=== PATIENT | male | born 1985 | race Caucasian/White ===

== ENCOUNTER 2020-07-05 12:19 | Emergency (ER) | payer OTHER ==
[~2020-07-05] VITALS: Ht 177.8 cm; Wt 78.9 kg
[2020-07-05 12:30] VITALS: Ht 177.8 cm; Wt 78.9 kg
[2020-07-05 13:01] LABS: PLATELET COUNT 304 x10^3mcL (152-348); RED CELL DISTRIBUTION WIDTH 13.1 % (12.1-16.2)
[2020-07-05 13:21] LABS: CALCIUM 9.6 mg/dL (8.5-10.1); CARBON DIOXIDE 28.6 mmol/L (21-32); CHLORIDE SERUM 103 mmol/L (98-107); GFR1 > 60 mL/min; GLUCOSE SERUM 126 mg/dL (74-106); POTASSIUM SERUM 4.1 mmol/L (3.5-5.1); SODIUM SERUM 139 mmol/L (136-145)
[2020-07-05 13:27] LABS: ALBUMIN 3.9 g/dL (3.4-5.0); ALKALINE PHOSPHATASE 84 U/L (46-116); ALT/SGPT 35 U/L (16-63); AST/SGOT 22 U/L (15-37); BILIRUBIN TOTAL 0.4 mg/dL (0.20-1.00); TOTAL PROTEIN, SERUM 7.3 g/dL (6.4-8.2)
[2020-07-05 14:48] LABS: AMPHETAMINE QUAL UR NONE DETECTED (See below)
[2020-07-05 16:53] VITALS: BP 132/87
== END 2020-07-05 16:53 | disposition left against medical advice (07) ==
LOC: ED 12:19
PROVIDERS: Emergency Medicine
DX: F31.9 Bipolar disorder, unspecified (principal); Z20.822 Contact with and (suspected) exposure to COVID-19
CPT/HCPCS: G0480; U0003